=== PATIENT | male | born 1980 | race Caucasian/White ===

== ENCOUNTER 2024-01-26 09:16 | Emergency (ER) | payer BC, SELFPAY ==
[2024-01-26 09:21] VITALS: BP 108/74
--- NOTE | 2024-01-26 09:45 | ED.GENMED ---
History of Present Illness
<Mary Engle PA-C - Last Filed: 01/26/24 22:50>
General
Chief Complaint: Musculo-Skeletal Complaint
Source: patient
Exam Limitations: none
Time Seen by Provider: 01/26/24 09:41
Nursing documentation reviewed up to this point in time: agreed with
History of Present Illness
History of Present Illness:
Patient is a 44-year-old male presenting to the emergency department for left ankle injury. Patient states that he was getting out of bed this morning when he fell inverting his left ankle. Patient states that his leg was asleep upon awakening due
to the position he was lying in causing him to fall. Patient does state that he heard a loud 'crack '. Patient states that he has been unable to weight-bear since the fall this morning. Patient denies any numbness or tingling in his left lower
extremity. Patient denies any pain in his left knee. Patient did not hit his head during fall earlier. Patient denies sustaining any other injuries in fall.
Patient denies any history of ankle injuries.
Past History
<Mary Engle PA-C - Last Filed: 01/26/24 22:50>
Past History
ED Past Medical History: Psychiatric (Bipolar disorder)
ED Past Surgical History: None
Social History
Tobacco: Non-smoker
Alcohol: None
Personal: Single
Living: alone
Employment: Employed
Family History
Family History: Negative Hypertension or Early CAD
Review of Systems
<Mary Engle PA-C - Last Filed: 01/26/24 22:50>
Review of Systems
Allergies reviewed?: Yes
All Other Systems: ROS reviewed and negative except as documented in HPI and ROS
Phy Exam
<Mary Engle PA-C - Last Filed: 01/26/24 22:50>
Physical Exam
Physical Exam:
Vitals: Patient's vital signs are stable. Afebrile
General: Patient is well appearing, no acute distress. Nontoxic-appearing
Skin: Warm and dry, no rashes or lesions. Mild edema of left ankle most notable around lateral malleolus
Head: Normocephalic, atraumatic
Eyes: Sclera nonicteric. EOMs intact. No nystagmus.
Throat: Protecting airway
Neck: Normal ROM, no cervical spine tenderness, no meningismus
Cardiac: Regular rate and rhythm, no murmurs.
Pulm: Normal respiratory effort, no wheezes, rales, rhonchi heard on exam.
Abdomen: No abdominal tenderness.
Extremities: Mild edema of left ankle at lateral malleolus without any notable ecchymoses or erythema. Moderate tenderness just anterior to left lateral malleolus and ATFL insertion site. Very mild tenderness of lateral malleolus. No tenderness
to medial malleolus, midfoot, hindfoot. No tenderness at base of fifth metatarsal or calcaneus. No tenderness of lateral foot. No tenderness at left fibular head. Achilles is intact. Acceptable plantarflexion and dorsiflexion of left ankle
although somewhat limited due to pain. Patient has full range of motion in left knee without any pain. No pain of left hip with internal/external rotation. Sensation fully intact in left lower extremity. Great distal pulses in left lower extremity
Neuro: AAOx3. CN II-XII intact. No focal neurologic deficits.
Psychiatric: Normal affect.
Course
<Mary Engle PA-C - Last Filed: 01/26/24 22:50>
Orders/Labs/Results
Orders:
Orders
01/26/24 09:22
Ankle, left 3 view CR [CR Ankle - Left Min 3 Views ] Urgent
Comment:
Reason For Exam: twisted left ankle getting out of bed
01/26/24 10:41
Air Splint Left-Treatment ONCE
Crutches-Treatment ONCE
01/26/24 10:53
Ibuprofen [Motrin] 200 mg PO NOW STA
Vital Signs
Initial and Last Documented VS:
Initial Vital Signs
Temp Pulse Resp BP Pulse Ox
99.0 F 104 16 108/74 98
01/26/24 09:21 01/26/24 09:21 01/26/24 09:21 01/26/24 09:21 01/26/24 09:21
Last Documented Vital Signs
Temp Pulse Resp BP Pulse Ox
99.0 F 104 16 108/74 98
01/26/24 09:21 01/26/24 09:21 01/26/24 09:21 01/26/24 09:21 01/26/24 09:21
<Yang Bobo MD - Last Filed: 01/26/24 17:18>
Orders/Labs/Results
Orders:
Orders
01/26/24 09:22
Ankle, left 3 view CR [CR Ankle - Left Min 3 Views ] Urgent
Comment:
Reason For Exam: twisted left ankle getting out of bed
01/26/24 10:41
Air Splint Left-Treatment ONCE
Crutches-Treatment ONCE
01/26/24 10:53
Ibuprofen [Motrin] 200 mg PO NOW STA
Vital Signs
Initial and Last Documented VS:
Initial Vital Signs
Temp Pulse Resp BP Pulse Ox
99.0 F 104 16 108/74 98
01/26/24 09:21 01/26/24 09:21 01/26/24 09:21 01/26/24 09:21 01/26/24 09:21
Last Documented Vital Signs
Temp Pulse Resp BP Pulse Ox
99.0 F 104 16 108/74 98
01/26/24 09:21 01/26/24 09:21 01/26/24 09:21 01/26/24 09:21 01/26/24 09:21
<Mary Engle PA-C - Last Filed: 01/26/24 22:50>
MDM/Problems Addressed
Differential Diagnosis Includes:
Not limited to: Ankle fracture, ankle sprain, foot fracture, foot sprain
MDM/Problems Addressed:
44 year old male presenting with left ankle pain following inversion injury this morning. Did not sustain any other injuries in fall. Vitals stable. Exam as above. There is edema noted around left lateral malleolus with tenderness just anterior near
insertion site of ATFL. Achilles intact. No tenderness of fibular head or foot tenderness. No tenderness at base of fifth metatarsal. LLE neurovascularly intact. Patient has decent ability to plantarflex and dorsiflex left ankle with mild pain. Left
knee atraumatic and nontender with full range of motion. Xray obtained in triage shows no acute fracture or dislocation. Suspect likely left ankle sprain. Patient is having difficulty ambulating. Will place patient in airsplint and provide crutches.
Discussed rest, ice, compression, elevation. Orhto referral given for further evaluation. Patient stable for discharge. All questions answered.
Chronic conditions affecting care:
N/A
Acute Exacerbation and/or Progression of Chronic Illness:
N/A
<Mary Engle PA-C - Last Filed: 01/26/24 22:50>
*Radiology
Radiology exam reviewed: preliminary read by ED provider and radiology read reviewed
*Pulse Oximetry
Patient hypoxic: no
*EKG
Interpreted by ED Provider?: NA
*[employer] Interpretation
Rate: [employer]- N/A
*Critical Care Note
Total Time (30-74mins, 75-104mins- exclusive of procedures): Not Applicable
ED Attending Note
<Mary Engle PA-C - Last Filed: 01/26/24 22:50>
-
Portions of this chart may have been created with voice recognition software.� Occasional wrong word or��sound alike� substitutions may have occurred due to the inherent limitations of voice recognition software.
<Yang Bobo MD - Last Filed: 01/26/24 17:18>
ED Attending Note
Patient seen and examined by attending physician: Yes
ED Attending Note:
I have seen and evaluated the patient with a [id number] encounter. I have spoken to the advance practicer provider and involved in the medical history, the physical exam, medical decision making.
Evaluation and management service: agree unless noted differently below.
Results interpretation: agree unless noted differently below.
Focused HPI: 44-year-old male presents for evaluation of left ankle injury. Patient reports that when he got out of bed his left leg was asleep and he twisted his left ankle and heard a pop/crack. Has had pain and swelling in the left lateral
ankle since. He says that transient lubt-cbm-fzmeqio sensation has resolved. He denies any other injuries or complaints including denying specifically left knee pain.
Physical exam: Awake alert not in distress. Vitals significant for mild tachycardia otherwise normal. He has swelling anterior to the left lateral malleolus and tenderness in this area; no tenderness of the lateral or medial malleolus on the left,
no tenderness of the left fifth metatarsal, no tenderness of the midfoot on the left. Good strong DP pulse on the left. No tenderness of the left knee. Full range of motion of the left knee. He is able to dorsiflex and plantarflex with only mild
discomfort in the left ankle.
Medical Decision Makin-year-old male presents with left ankle injury. X-ray shows no fracture. Suspect sprain. Discharged with instructions for RICE, air splint, crutches as needed. Referral to Ortho if should symptoms persist despite
conservative treatment.
Discharge Plan
Departure
Patient Disposition: Home (Routine Discharge)
Date of Disposition: 01/26/24
Time of Disposition: 10:45
Patient with high blood pressure during this ER visit?: No
Condition: Good
Covid-19: Not Applicable
Discharge Problem:
Left ankle sprain
Instructions: Ankle sprain
Prescriptions:
No Action
quetiapine [Seroquel] 100 mg Tablet
100 mg PO DAILY
carbamazepine 400 mg Tablet Extended Release 12 Hr
400 - 1,000 mg PO QPM
Patient Comments:
depends on pt symptoms (hypomania or maría elena per pt)
prazosin 5 mg Capsule
5 mg PO QPM
escitalopram oxalate [Lexapro] 20 mg Tablet
20 mg PO DAILY
bupropion HCl [Wellbutrin XL] 300 mg Tablet Extended Release 24 Hr
300 mg PO DAILY
bupropion HCl [Wellbutrin XL] 150 mg Tablet Extended Release 24 Hr
150 mg PO QPM
omega 4-uwk-lwm-fish oil [Fish Oil] 1,200 (144-216) mg Capsule
1 cap PO BID
ondansetron 4 mg tablet,disintegrating
4 mg PO QID PRN (Reason: nausea and vomiting) Qty: 20 0RF
Referrals:
Moise Butler MD [Active] - Next open appointment
Narayan Lopez DO [Family Provider] -
Activity Restrictions/Additional Instructions:
RETURN TO THE EMERGENCY DEPARTMENT WITH ANY NUMBNESS/TINGLING IN LEFT LOWER EXTREMITY, SIGNIFICANT SWELLING OR BRUISING OF LEFT ANKLE, INTRACTABLE PAIN, OR ANY OTHER CONCERNS
-Your ankle x-ray showed no evidence of fracture.
-As discussed�you should continue to rest, ice, and elevate your left leg. You should keep your left ankle in brace. You should use crutches over the next few days until you are seen by orthopedics. You should take Motrin and/or Tylenol as needed
for discomfort.
-Follow-up with orthopedics for further evaluation/management.
Interventions
Interventions:
*General Assessment Last Done: 01/26/24 11:26
*Nursing Disposition Last Done: 01/26/24 11:26
ED-Musculoskeletal Assessment Last Done: 01/26/24 10:08
Discharge Date and Time
Discharge Date/Time: 01/26/24 11:27
Print Language: ARGENTINE
[2024-01-26 10:48] VITALS: BMI 27.4
[2024-01-26] MEDS: MOTRIN 200 MG PO (11:13)
== END 2024-01-26 11:27 | disposition home or self-care (01) ==
LOC: EMR 09:16
PROVIDERS: EMERGENCY PHYSICIAN Emergency Medicine; FAMILY PHYSICIAN Family Medicine
DX: S93.402A Sprain of unspecified ligament of left ankle, initial encounter (principal); X50.1XXA Overexertion from prolonged static or awkward postures, initial encounter; F31.9 Bipolar disorder, unspecified
CPT/HCPCS: 99283; 73610